=== PATIENT | male | born 1995 | race Caucasian/White ===

== ENCOUNTER 2017-03-04 07:19 | Emergency (ER) | payer OTHER ==
[2017-03-04 07:23] VITALS: TEMP 97.2
--- NOTE | 2017-03-04 08:19 | ED ---
Skin/Abscess/FB HPI - General Chief complaint: Skin/Abscess/Foreign Body Stated complaint: left hand rash Time Seen by Provider: 03/04/17 07:52 Source: patient, RN notes reviewed, old records reviewed Mode of arrival: ambulatory Limitations: no limitations - History of Present Illness Initial comments: Through male presents emergency Department due to complaint of a pruritic rash as starting over his left hand and radiating up his arms. Patient reports it is also notices a rash over his concerning his groin. He reports he's had this for the past week. Patient reports it's extremely pruritic. He reports that he is sleeping friend's houses. He denies any other associated symptoms like fever or chills. Denies any new exposures besides being in the other people's houses. Patient denies any recent fever, chills, shortness of breath, chest pain, back pain, abdominal pain, nausea vomiting, numbness or tingling, dysuria or hematuria, constipation or diarrhea, headaches or visual changes, or any other current symptoms - Related Data Previous Rx's Medication Instructions Recorded Polymyxin B-Trimethoprim Ophth 2 drops LEFT EYE Q4H 10 Days 07/27/16 [Polytrim Opthalmic] Permethrin 5% Cream [Elimite] 1 applic TOPICAL ONCE #60 cream..g. 03/04/17 Allergies Allergy/AdvReac Type Severity Reaction Status Date / Time No Known Allergies Allergy Verified 03/04/17 07:23 Review of Systems ROS Statement: Those systems with pertinent positive or pertinent negative responses have been documented in the HPI. ROS Other: All systems not noted in ROS Statement are negative. Past Medical History Past Medical History: No Reported History History of Any Multi-Drug Resistant Organisms: None Reported Past Surgical History: No Surgical Hx Reported Past Psychological History: No Psychological Hx Reported Smoking Status: Current every day smoker Past Alcohol Use History: Occasional Past Drug Use History: Marijuana General Exam - General Exam Comments Initial Comments: 22-year-old male. No acute distress. Limitations: no limitations General appearance: alert, in no apparent distress Head exam: Present: atraumatic, normocephalic, normal inspection Eye exam: Present: normal appearance, PERRL, EOMI. Absent: scleral icterus, conjunctival injection, periorbital swelling ENT exam: Present: normal exam, mucous membranes moist Neck exam: Present: normal inspection. Absent: tenderness, meningismus, lymphadenopathy Respiratory exam: Present: normal lung sounds bilaterally. Absent: respiratory distress, wheezes, rales, rhonchi, stridor Cardiovascular Exam: Present: regular rate, normal rhythm, normal heart sounds. Absent: systolic murmur, diastolic murmur, rubs, gallop, clicks GI/Abdominal exam: Present: soft, normal bowel sounds. Absent: distended, tenderness, guarding, rebound, rigid Extremities exam: Present: normal inspection, full ROM, normal capillary refill. Absent: tenderness, pedal edema, joint swelling, calf tenderness Back exam: Present: normal inspection, full ROM Neurological exam: Present: alert, oriented X3, CN II-XII intact Psychiatric exam: Present: normal affect, normal mood Skin exam: Present: warm, dry, intact, normal color, erythema (Erythematous papular rash over her hand in a linear pattern. Rash is also extending up the forearm to the elbow. Patient also reports a similar rash in the ankles and groin. Rash is consistent with scabies.). Absent: rash Course Vital Signs 03/04/17 07:20 Temperature 97.2 F L Pulse Rate 68 Respiratory 14 Rate Blood Pressure 126/83 O2 Sat by Pulse 97 Oximetry Medical Decision Making - Medical Decision Making 22-year-old male with one week of pruritic rash over his hands, extending up to the arms into the groin. Patient has a papular rash between the webs of his fingers and this does appear to be consistent with scabies. Patient be started on permethrin cream. Discussed washing all the clothes in hot water. Also discussed that he needs repeat treatment in one week. Patient agrees to treatment plan will comply. Return parameters were discussed. Disposition Clinical Impression: Scabies Disposition: HOME SELF-CARE Condition: Good Instructions: Scabies (ED) Prescriptions: Permethrin 5% Cream [Elimite] 1 applic TOPICAL ONCE #60 cream..g. Referrals: None,Stated [Primary Care Provider] - 1-2 days Yi Vela MD [STAFF PHYSICIAN] - 1-2 days Time of Disposition: 08:17
[2017-03-04 08:35] VITALS: BP 127/70; PULSE 55; RESP 18
== END 2017-03-04 08:35 | disposition home or self-care (01) ==
LOC: EC 07:19
DX: B86 Scabies (principal); F17.200 Nicotine dependence, unspecified, uncomplicated
CPT/HCPCS: 99283

== ENCOUNTER 2017-03-07 11:42 | Emergency (ER) | payer OTHER ==
[2017-03-07 11:47] VITALS: BP 122/73; PULSE 77; RESP 16; TEMP 97.9
--- NOTE | 2017-03-07 11:53 | ED ---
Skin/Abscess/FB HPI - General Chief complaint: Skin/Abscess/Foreign Body Stated complaint: recheck/Rash Time Seen by Provider: 03/07/17 11:49 Source: patient, RN notes reviewed Mode of arrival: ambulatory Limitations: no limitations - History of Present Illness Initial comments: This a 22-year-old male presents emergency Department chief complaint recheck rash. Patient states she seen here 2 days ago for rash to his left hand and left groin region. He was diagnosed with scabies at the time he states he did complete the treatment and states that his symptoms are resolving but his work would like a note for medical back. Patient states he has no pruritus remaining states her rashes healed over. Patient states he also wash all of his clothing bedding and at home products. - Related Data Previous Rx's Medication Instructions Recorded Polymyxin B-Trimethoprim Ophth 2 drops LEFT EYE Q4H 10 Days 07/27/16 [Polytrim Opthalmic] Permethrin 5% Cream [Elimite] 1 applic TOPICAL ONCE #60 cream..g. 03/04/17 Allergies Allergy/AdvReac Type Severity Reaction Status Date / Time No Known Allergies Allergy Verified 03/07/17 11:43 Review of Systems ROS Statement: Those systems with pertinent positive or pertinent negative responses have been documented in the HPI. ROS Other: All systems not noted in ROS Statement are negative. Past Medical History Past Medical History: No Reported History History of Any Multi-Drug Resistant Organisms: None Reported Past Surgical History: No Surgical Hx Reported Past Psychological History: No Psychological Hx Reported Smoking Status: Current every day smoker Past Alcohol Use History: Occasional Past Drug Use History: Marijuana General Exam Limitations: no limitations General appearance: alert, in no apparent distress Head exam: Present: atraumatic, normocephalic, normal inspection Respiratory exam: Present: normal lung sounds bilaterally. Absent: respiratory distress, wheezes, rales, rhonchi, stridor Cardiovascular Exam: Present: regular rate, normal rhythm, normal heart sounds. Absent: systolic murmur, diastolic murmur, rubs, gallop, clicks GI/Abdominal exam: Present: soft, normal bowel sounds. Absent: distended, tenderness, guarding, rebound, rigid Extremities exam: Present: other (Some scabbing noted to the left hand there is no excoriations no open wounds or lesions. No new papules noted) Skin exam: Present: warm, dry Course Vital Signs 03/07/17 11:43 Temperature 97.9 F Pulse Rate 77 Respiratory 16 Rate Blood Pressure 122/73 O2 Sat by Pulse 100 Oximetry Medical Decision Making - Medical Decision Making 22-year-old male presented for rash recheck. His all rashes resolving has completed treatment for scabies. Patient will be discharged with return work no. Disposition Clinical Impression: Hx of scabies Disposition: HOME SELF-CARE Condition: Stable Instructions: Scabies (ED) Additional Instructions: Please return to the Emergency Department if symptoms worsen or any other concerns. Referrals: None,Stated [Primary Care Provider] - 1-2 days Time of Disposition: 11:53
== END 2017-03-07 12:03 | disposition home or self-care (01) ==
LOC: EC 11:42
DX: B86 Scabies (principal); F17.200 Nicotine dependence, unspecified, uncomplicated
CPT/HCPCS: 99282